=== PATIENT | female | born 1980 | race Caucasian/White ===

== ENCOUNTER → 2022-10-28 | Day surgery (SDC) | payer OTHER ==
[~2022-10-28] MED LIST: GADOTERATE MEGLUMINE 5 MMOL/10 ML VIAL IV ONE; IOHEXOL-300 50 ML BOTTLE IV ONE; LIDOCAINE HCL 1% 10 MG/ML 10ML VIAL ONE; SODIUM CHLORIDE 0.9% 10ML VIAL ONE
== END | disposition home or self-care (01) ==
LOC: RAD 09:44
DX: G89.29 Other chronic pain (principal); M25.552 Pain in left hip
CPT/HCPCS: 27093; 73722; 77002; A4216; A9577; J3490; Q9967; Z7610; 20611; 73525